=== PATIENT | male | born 1980 | race Caucasian/White ===

== ENCOUNTER 2016-09-02 00:44 | Emergency (ER) | payer MEDICAID ==
[2016-09-02] MEDS ORDERED: KETOROLAC 60 MG/2 ML VIAL IVP STA (02:12)
[2016-09-02] MEDS ORDERED: KETOROLAC 30 MG/ML VIAL ONE (02:15)
[2016-09-02] MEDS ORDERED: oxyCOD/ACETAMIN 5 MG/325 MG TABLET PO STA (03:37)
[2016-09-02] MEDS ORDERED: oxyCOD/ACETAMIN 5 MG/325 MG TABLET PO ONE (03:44)
== END 2016-09-02 03:50 | disposition home or self-care (01) ==
DX: N20.2 Calculus of kidney with calculus of ureter (principal); Z86.718 Personal history of other venous thrombosis and embolism
CPT/HCPCS: 36415; 74176; 80053; 81001; 83690; 85025; 96374; 99284; A9270

== ENCOUNTER 2018-07-22 08:00 | Outpatient (CLI) | payer MEDICAID | END 2018-07-22 23:59 | disposition home or self-care (01) | LOC: LAB.N 08:00 | PROVIDERS: ATTEND Nurse Practitioner Gerontology | DX: M79.89 Other specified soft tissue disorders (principal); Z86.718 Personal history of other venous thrombosis and embolism | CPT/HCPCS: 36415; 85379 ==

== ENCOUNTER 2018-07-23 08:00 | Outpatient (CLI) | payer MEDICAID ==
[2018-07-23 13:32] LABS: BASOPHILS % (AUTO) 0.5 %; EOSINOPHILS # (AUTO) 0.1 10^3/uL (0.0-0.7); EOSINOPHILS % (AUTO) 1.2 %; HGB - HEMOGLOBIN 14.6 g/dL (14.0-18.0); LYMPHOCYTES # (AUTO) 1.4 10^3/uL (1.5-3.5); LYMPHOCYTES % (AUTO) 25.2 %; MEAN CORPUSCULAR HEMOGLOBIN 32.2 pg (27.0-31.0); MEAN CORPUSCULAR HGB CONC 33.6 g/dL (32.0-36.0); MEAN CORPUSCULAR VOLUME 95.7 fL (80.0-94.0); MEAN PLATELET VOLUME 8.4 fL (7.4-11.4); MONOCYTES # (AUTO) 0.3 10^3/uL (0.0-1.0); MONOCYTES % (AUTO) 6.3 %; NEUTROPHILS # (AUTO) 3.6 10^3/uL (1.5-6.6); NEUTROPHILS % (AUTO) 66.8 %; PLT - PLATELET COUNT 233 10^3/uL (130-450); RED BLOOD COUNT 4.55 10^6/uL (4.70-6.10); RED CELL DISTRIBUTION WIDTH 13.6 % (12.0-15.0); WHITE BLOOD COUNT 5.4 x10^3/uL (4.8-10.8)
[2018-07-23 13:41] LABS: ALBUMIN 3.9 g/dL (3.2-5.5); ALBUMIN/GLOBULIN RATIO 1.2 (1.0-2.2); ALKALINE PHOSPHATASE 79 IU/L (42-121); ALT ALANINE AMINOTRANSFERASE 35 IU/L (10-60); AST ASPARTATE AMINOTRANSFERASE 24 IU/L (10-42); BILIRUBIN,TOTAL 1.2 mg/dL (0.2-1.0); BUN - BLOOD UREA NITROGEN 13 mg/dL (6-20); CALCIUM 8.7 mg/dL (8.5-10.3); CARBON DIOXIDE - CO2 28 mmol/L (21-32); CHLORIDE 101 mmol/L (101-111); CHOL/HDL RATIO 3.8 (<5.0); CHOLESTEROL 163 mg/dL; CREATININE 0.4 mg/dL (0.6-1.2); GFR - MDRD 243 (>89); GLUCOSE 112 mg/dL (70-100); HDL CHOLESTEROL 43 mg/dL; LDL CHOLESTEROL,CALCULATED 110 mg/dL; LDL/HDL RATIO 2.6 (<3.6); SODIUM 137 mmol/L (135-145); TOTAL PROTEIN 7.2 g/dL (6.7-8.2); VLDL CHOLESTEROL 10 mg/dL
== END 2018-07-23 23:59 | disposition home or self-care (01) ==
LOC: LAB.N 08:00
PROVIDERS: ATTEND Nurse Practitioner Gerontology
DX: Z13.9 Encounter for screening, unspecified (principal); Z86.718 Personal history of other venous thrombosis and embolism
CPT/HCPCS: 36415; 80053; 80061; 83721; 84443; 85025

== ENCOUNTER 2018-08-12 08:00 | Outpatient (CLI) | payer MEDICAID | END 2018-08-12 23:59 | disposition home or self-care (01) | LOC: LAB.N 08:00 | PROVIDERS: ATTEND Nurse Practitioner Gerontology | DX: R25.2 Cramp and spasm (principal) | CPT/HCPCS: 36415; 83735 ==

== ENCOUNTER 2018-12-25 | Outpatient (CLI) | payer MEDICAID | END 2018-12-25 23:59 | disposition home or self-care (01) | DX: E11.9 Type 2 diabetes mellitus without complications (principal) | CPT/HCPCS: 36415; 80053 ==

== ENCOUNTER 2019-02-05 08:00 | Outpatient (CLI) | payer MEDICAID ==
[2019-02-05 16:25] LABS: HB2 TOTAL 13.6 g/dL; HEMOGLOBIN A1C 0.51 g/dL; HEMOGLOBIN A1C % 5.6 % (4.6-6.2)
== END 2019-02-05 09:12 | disposition home or self-care (01) ==
LOC: LAB.N 08:00
PROVIDERS: ATTEND Nurse Practitioner Gerontology
DX: E11.9 Type 2 diabetes mellitus without complications (principal)
CPT/HCPCS: 36415; 83036

== ENCOUNTER 2019-10-19 08:10 | Outpatient (CLI) | payer MEDICAID, OTHER ==
[2019-10-19 09:51] LABS: BASOPHILS % (AUTO) 0.4 %; EOSINOPHILS # (AUTO) 0.1 10^3/uL (0.0-0.7); EOSINOPHILS % (AUTO) 1.4 %; HGB - HEMOGLOBIN 15.8 g/dL (14.0-18.0); LYMPHOCYTES % (AUTO) 24.5 %; MEAN CORPUSCULAR HEMOGLOBIN 32.4 pg (27.0-31.0); MEAN CORPUSCULAR HGB CONC 33.8 g/dL (32.0-36.0); MEAN CORPUSCULAR VOLUME 95.9 fL (80.0-94.0); MEAN PLATELET VOLUME 9.9 fL (7.4-11.4); MONOCYTES # (AUTO) 0.7 10^3/uL (0.0-1.0); MONOCYTES % (AUTO) 8.7 %; NEUTROPHILS # (AUTO) 5.2 10^3/uL (1.5-6.6); NEUTROPHILS % (AUTO) 64.7 %; PLT - PLATELET COUNT 281 10^3/uL (130-450); RED BLOOD COUNT 4.87 10^6/uL (4.70-6.10); RED CELL DISTRIBUTION WIDTH 13.1 % (12.0-15.0)
[2019-10-19 10:00] LABS: ALBUMIN 4.4 g/dL (3.2-5.5); ALBUMIN/GLOBULIN RATIO 1.3 (1.0-2.2); BILIRUBIN,TOTAL 1.2 mg/dL (0.2-1.0); CALCIUM 9.1 mg/dL (8.5-10.3); CREATININE 0.6 mg/dL (0.6-1.2); TOTAL PROTEIN 7.8 g/dL (6.7-8.2)
[2019-10-19 10:04] LABS: INR 1.2 (0.8-1.2); PT - PROTHROMBIN TIME 13.8 secs (9.9-12.6)
[2019-10-19 10:34] LABS: HB2 TOTAL 16.5 g/dL; HEMOGLOBIN A1C 0.67 g/dL; HEMOGLOBIN A1C % 5.9 % (4.6-6.2)
== END 2019-10-19 23:59 | disposition home or self-care (01) ==
LOC: LAB.R 08:10
PROVIDERS: ATTEND Registered Nurse
DX: E66.01 Morbid (severe) obesity due to excess calories (principal)
CPT/HCPCS: 80053; 83036; 85025; 85610

== ENCOUNTER 2019-10-24 08:00 | Outpatient (CLI) | payer MEDICAID, OTHER ==
[2019-10-24 16:38] LABS: INR 1.3 (0.8-1.2); PT - PROTHROMBIN TIME 14.4 secs (9.9-12.6)
== END 2019-10-24 23:59 | disposition home or self-care (01) ==
LOC: LAB.R 08:00
PROVIDERS: ATTEND Registered Nurse
DX: Z79.01 Long term (current) use of anticoagulants (principal)
CPT/HCPCS: 85610

== ENCOUNTER 2019-11-06 08:00 | Outpatient (CLI) | payer MEDICAID, OTHER ==
[2019-11-06 14:32] LABS: CALCIUM 9.2 mg/dL (8.5-10.3); CREATININE 0.7 mg/dL (0.6-1.2)
== END 2019-11-06 23:59 | disposition home or self-care (01) ==
LOC: LAB.R 08:00
PROVIDERS: ATTEND Registered Nurse
DX: E11.9 Type 2 diabetes mellitus without complications (principal); I82.5Y1 Chronic embolism and thrombosis of unspecified deep veins of right proximal lower extremity; E89.6 Postprocedural adrenocortical (-medullary) hypofunction
CPT/HCPCS: 80048

== ENCOUNTER 2019-11-09 08:32 | Emergency (ER) | payer MEDICAID, OTHER ==
--- NOTE | 2019-11-09 08:53 | ED Physician Documentation ---
PD HPI [facility]O - Stated complaint Stated Complaint: DIZZY/VOMITING - Chief complaint Chief Complaint: General - History obtained from History obtained from: Patient - History of Present Illness Timing - onset: How many days ago (few days of increasingFeeling of spinning vertigo with head movement and standing up. He denies any feeling of dizziness with lying still. He has had a little bit of a feeling of pressure in the ears. He denies any tinnitus. He has had a some nasal congestion and sinus pressure feeling as well. No coughing. He today he did describe some headache in the occipital area worse with head movement. No change in vision. He did have a feeling of some intermittent diffuse numbness and tingling in his arms and legs yesterday and today as well intermittently.) Timing - duration: Days (few) Timing - details: Gradual onset, Intermittant Severity of deficit: Moderate Associated symptoms: Headache (occipital area yesterday/today.), Nausea / vomiting. No: Seizure, Syncope Contributing factors: positive: Anticoagulated. negative: Vascular dz, Atrial fibrillation Baseline status: positive: A&OX3, ambulatory, indep Similar symptoms before: Has not had sx before Recently seen: Other (He was recently jailed in the last 2 weeks and had been off of his prior medicines until or since June. He was resumed on metformin and antidepressant and blood pressure medicine but also was resumed on warfarin because of a history of recurrent blood clots in the past. He has been having some trouble sleeping and also some anxiety and started a new medicine of prazosin just 1-1/2 to 2 weeks ago.) Review of Systems Constitutional: reports: Fatigue. denies: Fever, Chills, Myalgias Eyes: denies: Decreased vision, Photophobia Ears: reports: Ear pain. denies: Drainage/discharge Nose: reports: Sinus pressure / pain. denies: Rhinorrhea / runny nose, Conges tion Throat: denies: Sore throat Cardiac: denies: Chest pain / pressure, Palpitations Respiratory: denies: Dyspnea, Cough GI: reports: Nausea. denies: Abdominal Pain, Vomiting, Diarrhea Neurologic: reports: Numbness (some at times in legs/arms, more to the left), Headache. denies: Focal weakness, Near syncope, Syncope, Altered mental status, Head injury Psychiatric: denies: Depressed, Anxiety PD PAST MEDICAL HISTORY - Past Medical History Cardiovascular: Deep vein thrombosis Respiratory: None Endocrine/Autoimmune: Type 2 diabetes GI: None : None HEENT: None Psych: None Musculoskeletal: None Derm: Other - Past Surgical History Past Surgical History: Yes Ortho: Other HEENT: Tonsil/Adenoidectomy - Present Medications Home Medications: Ambulatory Orders Medication Instructions Recorded Confirmed metFORMIN [Glucophage] 500 mg PO BID 09/23/18 11/09/19 Cetirizine [ZyrTEC] 10 mg PO DAILY #15 tablet 11/09/19 Docusate Sodium 100 mg PO QPM 11/09/19 11/09/19 FLUoxetine [PROzac] 30 mg PO DAILY 11/09/19 11/09/19 Furosemide 10 mg PO DAILY 11/09/19 11/09/19 Meclizine HCl [Motion Sickness 25 mg PO Q6H PRN #25 tablet 11/09/19 Relief] Nystatin 0 gm TP BID 11/09/19 11/09/19 Potassium Chloride [Micro-K] 10 meq PO BIDWM 11/09/19 11/09/19 Prazosin [Minipress] 2 mg PO QPM 11/09/19 11/09/19 Warfarin [Coumadin] 7.5 mg PO PRN PRN 11/09/19 11/09/19 Warfarin [Coumadin] 10 mg PO PRN PRN 11/09/19 11/09/19 buPROPion HCL [Bupropion HCl] 75 mg PO BID 11/09/19 11/09/19 dexAMETHasone [Decadron] 4 mg PO DAILY #5 tablet 11/09/19 lisinopriL [Lisinopril] 10 mg PO DAILY 11/09/19 11/09/19 - Allergies Allergies/Adverse Reactions: Allergies Allergy/AdvReac Type Severity Reaction Status Date / Time mustard seed Allergy Unknown Uncoded 11/09/19 08:54 - Social History Does the pt smoke?: No Smoking Status: Never smoker Does the pt drink ETOH?: No Does the pt have substance abuse?: No - Immunizations Immunizations are current?: Yes - POLST Patient has POLST: No PD ED PE NORMAL - Vitals Vital signs reviewed: Yes - General General: Alert and oriented X 3, No acute distress, Well developed/nourished - HEENT HEENT: Atraumatic, PERRL, EOMI (with some mild nystagmus to the left.), Ears normal, Pharynx benign - Neck Neck: Supple, no meningeal sign, No adenopathy, No bruit - Cardiac Cardiac: RRR, No murmur - Respiratory Respiratory: Clear bilaterally - Abdomen Abdomen: Soft, Non tender - Back Back: No CVA TTP - Derm Derm: Normal color, Warm and dry - Extremities Extremities: No tenderness to palpate, No edema, No calf tenderness / cord - Neuro Neuro: Alert and oriented X 3, buckle stringer 2-12 intact, No motor deficit, No sensory deficit, Normal speech Eye Opening: Spontaneous Motor: Obeys Commands Verbal: Oriented GCS Score: 15 - Psych Psych: Normal mood, Normal affect NIHSS - Level of Consciousness Level of consciousness: (0) Alert, Keenly responsive LOC Questions: (0) Answers both Q's correct LOC Commands: (0) Performs both correctly - Gaze Best Gaze: (0) Normal - Visual Visual: (0) No loss - Facial Palsy Facial Palsy: (0) Normal, symmetrical movement - Motor Arms (both separate) Motor Arm (right): (0) No drift Motor Arm (left): (0) No drift - Motor Legs (both separate) Motor Leg (right): (0) No drift Motor Leg (left): (0) No drift - Limb Ataxia Limb Ataxia: (0) Absent - Sensory Sensory: (0) Normal - Best Language Best Language: (0) No aphasia - Dysarthria Dysarthria: (0) Normal - Extinction and Inattention (formally neg Extinction and inattention: (0) No abnormality - Total Score/Results Total Score/Result: 0 Results - Vitals Vitals: Vital Signs - 24 hr 11/09/19 11/09/19 08:32 11:09 Temperature 37.3 C 36.1 C L Heart Rate 84 76 Respiratory 18 18 Rate Blood Pressure 160/86 H 161/82 H O2 Saturation 97 95 Oxygen O2 Source Room air - Labs Labs: Laboratory Tests 11/09/19 11/09/19 11/09/19 10:05 10:05 10:05 WBC 6.0 RBC 4.72 Hgb 15.3 Hct 44.9 MCV 95.1 H MCH 32.4 H MCHC 34.1 RDW 13.2 Plt Count 226 MPV 9.9 Neut # (Auto) 3.9 Lymph # (Auto) 1.5 Zapata # (Auto) 0.6 Eos # (Auto) 0.0 Baso # (Auto) 0.0 Absolute Nucleated RBC 0.00 Nucleated RBC % 0.0 PT 26.7 H INR 2.5 H Sodium 136 Potassium 3.8 Chloride 100 L Carbon Dioxide 28 Anion Gap 8.0 BUN 8 Creatinine 0.6 Estimated GFR (MDRD) 151 Glucose 104 H Calcium 9.2 Magnesium 1.8 Total Bilirubin 0.7 AST 37 ALT 77 H Alkaline Phosphatase 77 Total Protein 7.2 Albumin 4.5 Globulin 2.7 Albumin/Globulin Ratio 1.7 Lipase 25 - Rads (name of study) head CT Radiology: Prelim report reviewed (no ICH nor acute process), See rad report PD MEDICAL DECISION MAKING - ED course Complexity details: considered differential (He has positional vertigo with some nystagmus. This seems likely to be peripheral vertigo or medication related. Presents and is a side effect praises and has a side effect of dizziness so this may be it and was a new medicine for him. However he does have some occipital headache and is on a blood thinner so I did a CT scan to ensure no posterior bleed. This was normal. Electrolytes such as low sodium could cause symptoms as well so blood tests were done and his electrolytes were normal.), d/w patient, d/w aerodynamic consultant (I talked with Tess Cespedes who is the nurse practitioner for the [facility]. I reviewed the findings and my impression with her and she concurred on treatment of stopping the prazosin and treating for inner ear vertigo, possibly allergy related since the patient did describe some environmental or seasonal allergy type symptoms as well.) Departure - Departure Disposition: 01 Home, Self Care Clinical Impression: Positional vertigo Condition: Stable Record reviewed to determine appropriate education?: Yes Instructions: ED Vertigo Unspecified Follow-Up: TESS CESPEDES ARNP [Physician No Access] - Prescriptions: Cetirizine [ZyrTEC] 10 mg PO DAILY #15 tablet dexAMETHasone [Decadron] 4 mg PO DAILY #5 tablet Meclizine HCl [Motion Sickness Relief] 25 mg PO Q6H PRN #25 tablet PRN Reason: Vertigo Comments: Your tests today appear normal and your head CT does not show any acute abnormalities. At this point I presume its inner ear related vertigo potentially from allergies. We can treat that with cetirizine antihistamine daily and also several days of Decadron steroid to decrease inflammation. Meclizine every 6 hours if needed to try to decrease the dizziness symptoms. Dizziness/vertigo was also listed side effect for the prazosin, so it would also make sense to hold that for for 5 days. Once you are doing better, you could potentially resume the prazosin and see if any symptoms return and that would help determine whether that was part of the equation versus just inner ear inflammation. Discharge Date/Time: 11/09/19 11:10
[2019-11-09] MEDS ORDERED: ONDANSETRON ODT 4 MG TABLET TL STA (09:16)
[2019-11-09] MEDS ORDERED: MECLIZINE 12.5 MG TABLET PO STA ×2 (09:16→10:54)
--- NOTE | 2019-11-09 09:44 | CT Report ---
PROCEDURE: HEAD WO INDICATIONS: dizziness,vertigo; on coumadin TECHNIQUE: Noncontrast 4.5 mm thick angled axial sections acquired from the foramen magnum to the vertex. For r adiation dose reduction, the following was used: automated exposure control, adjustment of mA and/or kV according to patient size. COMPARISON: None. FINDINGS: Image quality: Excellent. CSF spaces: Basal cisterns are patent. No extra-axial fluid collections. Ventricles are normal in size and shape. Brain: No midline shift. No intracranial masses or hemorrhage. Krishna-white matter interface is norm al. Skull and face: Calvarium and visualized facial bones are intact, without suspicious lesions. Sinuses: Visualized sinuses and mastoids are clear. IMPRESSION: No CT evidence of acute intracranial pathology. Reviewed by: Valeriano Mckinney MD on 11/09/2019 9:43 AM PDT Approved by: Valeriano Mckinney MD on 11/09/2019 9:43 AM PDT Station ID: [id number]
[2019-11-09 10:15] LABS: BASOPHILS % (AUTO) 0.2 %; EOSINOPHILS % (AUTO) 0.5 %; HGB - HEMOGLOBIN 15.3 g/dL (14.0-18.0); LYMPHOCYTES # (AUTO) 1.5 10^3/uL (1.5-3.5); LYMPHOCYTES % (AUTO) 24.1 %; MEAN CORPUSCULAR HEMOGLOBIN 32.4 pg (27.0-31.0); MEAN CORPUSCULAR HGB CONC 34.1 g/dL (32.0-36.0); MEAN CORPUSCULAR VOLUME 95.1 fL (80.0-94.0); MEAN PLATELET VOLUME 9.9 fL (7.4-11.4); MONOCYTES # (AUTO) 0.6 10^3/uL (0.0-1.0); MONOCYTES % (AUTO) 10.5 %; NEUTROPHILS # (AUTO) 3.9 10^3/uL (1.5-6.6); NEUTROPHILS % (AUTO) 64.5 %; PLT - PLATELET COUNT 226 10^3/uL (130-450); RED BLOOD COUNT 4.72 10^6/uL (4.70-6.10); RED CELL DISTRIBUTION WIDTH 13.2 % (12.0-15.0)
[2019-11-09 10:25] LABS: INR 2.5 (0.8-1.2); PT - PROTHROMBIN TIME 26.7 secs (9.9-12.6)
[2019-11-09 10:27] LABS: ALBUMIN 4.5 g/dL (3.2-5.5); ALBUMIN/GLOBULIN RATIO 1.7 (1.0-2.2); BILIRUBIN,TOTAL 0.7 mg/dL (0.2-1.0); CALCIUM 9.2 mg/dL (8.5-10.3); CREATININE 0.6 mg/dL (0.6-1.2); MAGNESIUM 1.8 mg/dL (1.7-2.8); TOTAL PROTEIN 7.2 g/dL (6.7-8.2)
[2019-11-09] MEDS ORDERED: CHERRY SYRUP 10 ML UDC PO ONE (10:54)
[2019-11-09] MEDS ORDERED: CETIRIZINE 10 MG TABLET PO STA (10:54)
[2019-11-09] MEDS ORDERED: DEXAMETHASONE 10 MG/ML VIAL PO STA (10:54)
[2019-11-09 11:10] VITALS: BP 161/82
== END 2019-11-09 11:10 | disposition home or self-care (01) ==
LOC: ED 08:32
DX: H81.10 Benign paroxysmal vertigo, unspecified ear (principal); R51 Headache; R11.2 Nausea with vomiting, unspecified; E11.9 Type 2 diabetes mellitus without complications; Z79.84 Long term (current) use of oral hypoglycemic drugs; Z86.718 Personal history of other venous thrombosis and embolism; Z79.01 Long term (current) use of anticoagulants
CPT/HCPCS: 36415; 70450; 80053; 83690; 83735; 85025; 85610; 99284; A9270; Q0162

== ENCOUNTER 2019-11-20 09:00 | Outpatient (CLI) | payer MEDICAID, OTHER ==
[2019-11-20 10:27] LABS: CALCIUM 9.3 mg/dL (8.5-10.3); CREATININE 0.6 mg/dL (0.6-1.2)
== END 2019-11-20 23:59 | disposition home or self-care (01) ==
LOC: LAB.R 09:00
PROVIDERS: ATTEND Registered Nurse
DX: E87.6 Hypokalemia (principal)
CPT/HCPCS: 80048

== ENCOUNTER 2019-11-22 08:00 | Outpatient (CLI) | payer MEDICAID, OTHER ==
[2019-11-22 09:25] LABS: INR 2.4 (0.8-1.2); PT - PROTHROMBIN TIME 26.1 secs (9.9-12.6)
== END 2019-11-22 23:59 | disposition home or self-care (01) ==
LOC: LAB.R 08:00
PROVIDERS: ATTEND Registered Nurse
DX: D68.32 Hemorrhagic disorder due to extrinsic circulating anticoagulants (principal)
CPT/HCPCS: 85610

== ENCOUNTER 2019-11-27 08:00 | Outpatient (CLI) | payer MEDICAID, OTHER ==
[2019-11-27 09:59] LABS: INR 2.2 (0.8-1.2); PT - PROTHROMBIN TIME 23.5 secs (9.9-12.6)
== END 2019-11-27 23:59 | disposition home or self-care (01) ==
LOC: LAB 08:00
PROVIDERS: ATTEND Registered Nurse
DX: Z79.01 Long term (current) use of anticoagulants (principal)
CPT/HCPCS: 85610

== ENCOUNTER 2019-11-29 09:40 | Outpatient (CLI) | payer MEDICAID, OTHER ==
[2019-11-29 11:27] LABS: CALCIUM 8.9 mg/dL (8.5-10.3); CREATININE 0.6 mg/dL (0.6-1.2)
== END 2019-11-29 23:59 | disposition home or self-care (01) ==
LOC: LAB.R 09:40
PROVIDERS: ATTEND Registered Nurse
DX: Z79.899 Other long term (current) drug therapy (principal)
CPT/HCPCS: 80048

== ENCOUNTER 2019-12-07 08:47 | Outpatient (CLI) | payer MEDICAID, OTHER ==
[2019-12-07 09:22] LABS: INR 2.3 (0.8-1.2); PT - PROTHROMBIN TIME 25.1 secs (9.9-12.6)
== END 2019-12-07 23:59 | disposition home or self-care (01) ==
LOC: LAB.R 08:47
PROVIDERS: ATTEND Registered Nurse
DX: Z79.01 Long term (current) use of anticoagulants (principal)
CPT/HCPCS: 85610

== ENCOUNTER 2019-12-07 21:30 | Outpatient (CLI) | payer MEDICAID, OTHER ==
[2019-12-08 00:02] LABS: BASOPHILS % (AUTO) 0.3 %; EOSINOPHILS # (AUTO) 0.1 10^3/uL (0.0-0.7); HGB - HEMOGLOBIN 15.2 g/dL (14.0-18.0); LYMPHOCYTES # (AUTO) 2.5 10^3/uL (1.5-3.5); LYMPHOCYTES % (AUTO) 28.4 %; MEAN CORPUSCULAR HEMOGLOBIN 32.2 pg (27.0-31.0); MEAN CORPUSCULAR HGB CONC 33.5 g/dL (32.0-36.0); MEAN CORPUSCULAR VOLUME 96.2 fL (80.0-94.0); MEAN PLATELET VOLUME 10.2 fL (7.4-11.4); MONOCYTES # (AUTO) 0.7 10^3/uL (0.0-1.0); MONOCYTES % (AUTO) 8.1 %; NEUTROPHILS # (AUTO) 5.3 10^3/uL (1.5-6.6); NEUTROPHILS % (AUTO) 61.9 %; PLT - PLATELET COUNT 328 10^3/uL (130-450); RED BLOOD COUNT 4.72 10^6/uL (4.70-6.10); RED CELL DISTRIBUTION WIDTH 13.7 % (12.0-15.0); WHITE BLOOD COUNT 8.6 x10^3/uL (4.8-10.8)
== END 2019-12-07 23:59 | disposition home or self-care (01) ==
LOC: LAB.R 21:30
PROVIDERS: ATTEND Registered Nurse
DX: D68.32 Hemorrhagic disorder due to extrinsic circulating anticoagulants (principal); Z79.01 Long term (current) use of anticoagulants
CPT/HCPCS: 85025; 85610

== ENCOUNTER 2019-12-13 08:00 | Outpatient (CLI) | payer MEDICAID, OTHER ==
[2019-12-13 13:12] LABS: INR 2.3 (0.8-1.2); PT - PROTHROMBIN TIME 24.7 secs (9.9-12.6)
== END 2019-12-13 23:59 | disposition home or self-care (01) ==
LOC: LAB.R 08:00
PROVIDERS: ATTEND Registered Nurse
DX: Z79.899 Other long term (current) drug therapy (principal)
CPT/HCPCS: 85610

== ENCOUNTER 2019-12-22 15:15 | Outpatient (CLI) | payer MEDICAID, OTHER ==
[2019-12-22 15:51] LABS: BASOPHILS % (AUTO) 0.4 %; EOSINOPHILS # (AUTO) 0.1 10^3/uL (0.0-0.7); EOSINOPHILS % (AUTO) 0.7 %; HGB - HEMOGLOBIN 15.4 g/dL (14.0-18.0); LYMPHOCYTES # (AUTO) 2.5 10^3/uL (1.5-3.5); LYMPHOCYTES % (AUTO) 30.6 %; MEAN CORPUSCULAR HEMOGLOBIN 32.6 pg (27.0-31.0); MEAN CORPUSCULAR HGB CONC 34.1 g/dL (32.0-36.0); MEAN CORPUSCULAR VOLUME 95.6 fL (80.0-94.0); MEAN PLATELET VOLUME 10.1 fL (7.4-11.4); MONOCYTES # (AUTO) 0.7 10^3/uL (0.0-1.0); MONOCYTES % (AUTO) 8.1 %; NEUTROPHILS % (AUTO) 59.8 %; PLT - PLATELET COUNT 256 10^3/uL (130-450); RED BLOOD COUNT 4.73 10^6/uL (4.70-6.10); WHITE BLOOD COUNT 8.3 x10^3/uL (4.8-10.8)
== END 2019-12-22 23:59 | disposition home or self-care (01) ==
LOC: LAB.R 15:15
PROVIDERS: ATTEND Registered Nurse
DX: Z79.01 Long term (current) use of anticoagulants (principal)
CPT/HCPCS: 85025; 85610

== ENCOUNTER 2019-12-24 17:45 | Outpatient (CLI) | payer MEDICAID, OTHER ==
[2019-12-24 19:22] LABS: CALCIUM 9.1 mg/dL (8.5-10.3); CREATININE 0.7 mg/dL (0.6-1.2)
[2019-12-24 19:27] LABS: INR 2.1 (0.8-1.2); PT - PROTHROMBIN TIME 22.7 secs (9.9-12.6)
== END 2019-12-24 23:59 | disposition home or self-care (01) ==
LOC: LAB.R 17:45
PROVIDERS: ATTEND Registered Nurse
DX: Z79.01 Long term (current) use of anticoagulants (principal)
CPT/HCPCS: 80048; 85610

== ENCOUNTER 2020-01-17 09:05 | Outpatient (CLI) | payer MEDICAID, OTHER ==
[2020-01-17 10:23] LABS: INR 2.7 (0.8-1.2); PT - PROTHROMBIN TIME 29.3 secs (9.9-12.6)
== END 2020-01-17 23:59 | disposition home or self-care (01) ==
LOC: LAB.R 09:05
PROVIDERS: ATTEND Registered Nurse
DX: Z79.01 Long term (current) use of anticoagulants (principal)
CPT/HCPCS: 85610